=== PATIENT | male | born 1990 | race Hispanic/Latino ===

== ENCOUNTER 2019-04-09 05:36 | Emergency (ER) | payer OTHER ==
[~2019-04-09] VITALS: Ht 175.3 cm; Wt 106.6 kg
--- NOTE | 2019-04-09 06:18 | Diagnostic Imaging Report ---
EXAMINATION: CHEST 2 VIEWS INDICATION: Shortness of breath. COMPARISON: None FINDINGS: TUBES and LINES: None. LUNGS: Low lung volumes. Mild patchy bibasilar opacity, likely atelectasis. There is no evidence of pneumonia or pulmonary edema. PLEURA: No pleural effusion or pneumothorax. HEART AND MEDIASTINUM: The cardiomediastinal silhouette is unremarkable. BONES AND SOFT TISSUES: No acute osseous abnormality. UPPER ABDOMEN: No free air under the diaphragm. IMPRESSION: No acute radiographic abnormality. Signed by: Dr. Surjit Reyna MD on 04/09/2019 6:15 AM
[2019-04-09] MEDS ORDERED: PANTOPRAZOLE 40 MG 10ML VIAL IV STA (06:25)
[2019-04-09] MEDS ORDERED: ASPIRIN 81 MG CHEW TAB PO STA (06:25)
[2019-04-09] MEDS ORDERED: SODIUM CHLORIDE 0.9% 1000ML 1,000 ML IV STA (06:25)
[2019-04-09 07:07] LABS: BASOPHILS % 0.8 % (0.0-1.0); EOSINOPHILS # (AUTO) 0.1 (0.0-0.4); EOSINOPHILS % 1.5 % (0.0-6.0); HEMATOCRIT 43.1 % (38.2-49.6); HEMOGLOBIN 15.6 g/dL (14.0-18.0); LYMPHOCYTES # (AUTO) 2.3 (1.0-3.2); LYMPHOCYTES % 43.6 % (18.0-39.1); MEAN CORPUSCULAR HEMOGLOBIN 31.4 pg (28-32); MEAN CORPUSCULAR HGB CONC 36.2 g/dL (31-35); MEAN CORPUSCULAR VOLUME 86.7 fL (81-99); MONOCYTES # (AUTO) 0.4 (0.2-0.8); NEUTROPHILS # (AUTO) 2.5 (2.1-6.9); NEUTROPHILS % 46.9 % (38.7-80.0); PLATELET COUNT 222 x10e3/uL (140-360); RED BLOOD COUNT 4.97 x10e6/uL (4.3-5.7); RED CELL DISTRIBUTION WIDTH 11.8 % (11.7-14.4)
[2019-04-09 07:11] LABS: BILIRUBIN,URINE NEGATIVE (NEGATIVE); CLARITY,URINE SL CLOUDY (CLEAR); COLOR,URINE YELLOW (YELLOW); KETONES,URINE NEGATIVE (NEGATIVE); LEUKOCYTE ESTERASE ,URINE NEGATIVE (NEGATIVE); NITRITE,URINE NEGATIVE (NEGATIVE); PROTEIN,URINE DIPSTICK NEGATIVE (NEGATIVE); URINE UROBILINOGEN 0.2 mg/dL (0.2 - 1)
[2019-04-09 07:36] LABS: AMORPHOUS SEDIMENT,URINE FEW (FEW); BACTERIA,URINE MODERATE /HPF; EPITHELIAL CELLS,URINE MODERATE /LPF; RBC,URINE 0-5 /HPF (0-5)
[2019-04-09 07:44] LABS: ALANINE AMINOTRANSFERASE 24 IU/L (0-55); ALBUMIN 4.2 g/dL (3.5-5.0); ALBUMIN/GLOBULIN RATIO 1.7 (0.8-2.0); ALKALINE PHOSPHATASE 55 IU/L (40-150); ANION GAP 12.8 mmol/L (8-16); BLOOD UREA NITROGEN 16 mg/dL (7-26); BUN/CREATININE RATIO 19 (6-25); CALCIUM 9.3 mg/dL (8.4-10.2); CARBON DIOXIDE 26 mmol/L (22-29); CHLORIDE 103 mmol/L (98-107); CREATINE KINASE 136 IU/L (30-200); CREATININE, SERUM 0.83 mg/dL (0.72-1.25); EST GLOMERULAR FILTRATION RATE > 60 ML/MIN (60-); GLUCOSE 101 mg/dL (74-118); LIPASE 22 U/L (8-78); MAGNESIUM 2.1 MG/DL (1.3-2.1); POTASSIUM 3.8 mmol/L (3.5-5.1); SODIUM 138 mmol/L (136-145)
[2019-04-09 07:49] LABS: AMPHETAMINES SCREEN,URINE NEGATIVE (NEGATIVE); BENZODIAZEPINES SCREEN,URINE NEGATIVE (NEGATIVE); PHENCYCLIDINE SCREEN,URINE NEGATIVE (NEGATIVE)
[2019-04-09 08:17] VITALS: BP 130/87
== END 2019-04-09 08:25 | disposition home or self-care (01) ==
LOC: ER 05:36
DX: R07.89 Other chest pain (principal)
CPT/HCPCS: 36415; 71046; 80053; 80307; 81001; 82550; 82553; 83690; 83735; 83880; 84484; 85025; 93005; 99284; C9113; J7030

== ENCOUNTER 2019-09-22 12:26 | Emergency (ER) | payer OTHER ==
[~2019-09-22] VITALS: Ht 172.7 cm; Wt 117.1 kg
--- OUTSIDE RECORDS SUMMARY | 2019-09-22 12:29 | XMS REPORT ---
Author Author [facility] Address Unknown Phone Unavailable Care Team Providers Care Carver Hand Name Role Phone NONSTAFF PP Unavailable Elli TRIVEDI Unavailable Unavailable Problems This patient has no known problems. Allergies, Adverse Reactions, Alerts This patient has no known allergies or adverse reactions. Medications This patient has no known medications. Procedures and Interventions Procedure Date / Time Performed Performing Clinician X-ray of chest, two views 2019-04-09 00:00:00 RIDGE TRIVEDI Encounters Start Date/Time End Date/Time Encounter Type Admission Type Attending Clinicians Care Facility Care Department Encounter ID 2019-04-09 05:36:00 2019-04-09 08:25:00 Departed Emergency Room [address] [facility] [id number] Results Test Description Test Time Test Comments Text Results Atomic Results Result Comments Creatine Kinase MB 2019-04-09 07:53:00 Creatine Kinase MB (test mawx=26375-8) 1.00 0-5.0 Troponin Z1789-83-12 07:53:00* Test Item Value Reference Range Comments Troponin I (test ngzx=VSY0216) < 0.001 0-0.300 Urine Opiates Bkrmmx3458-36-10 07:49:00* Test Item Value Reference Range Comments Urine Opiates Screen (test amph=20851-1) NEGATIVE NEGATIVE ALL TESTS PERFORMED MANUALLY ON [employer] TOX/SEE TEST --- 04/09/19 0749 ---OPIATE S previously reported as: ALL TESTS PERFORMED MANUALLY ON [employer] TOX/SEE TEST Urine Barbiturates Tiwyvv6370-47-90 07:49:00* Test Item Value Reference Range Comments Urine Barbiturates Screen (test nnjb=261828419) NEGATIVE NEGATIVE Urine Phencyclidine Wxaydw8913-61-05 07:49:00* Test Item Value Reference Range Comments Urine Phencyclidine Screen (test egmg=96747-7) NEGATIVE NEGATIVE Urine Amphetamines Gwyfcd4724-53-24 07:49:00* Test Item Value Reference Range Comments Urine Amphetamines Screen (test hbgt=50379-0) NEGATIVE NEGATIVE Urine Methamphetamines Nimeuj5451-09-30 07:49:00* Test Item Value Reference Range Comments Urine Methamphetamines Screen (test code=Urine Methamphetamines Screen) NEGATIVE NEGATIVE Urine Benzodiazepines Qnzhnh0400-13-27 07:49:00* Test Item Value Reference Range Comments Urine Benzodiazepines Screen (test exnz=61561-1) NEGATIVE NEGATIVE Urine Cocaine Gjqilf9596-40-43 07:49:00* Test Item Value Reference Range Comments Urine Cocaine Screen (test mqaq=0705-5) NEGATIVE NEGATIVE Urine Cannabinoids Krwngm0158-36-79 07:49:00* Test Item Value Reference Range Comments Urine Cannabinoids Screen (test ufdi=75887-8) NEGATIVE NEGATIVE THESE RESULTS ARE FOR MEDICAL TREATMENT ONLYTHIS REPORT CONTAINS UNCONFIR MED SCREENING RESULTS*POSITIVE RESULTS WILL BE CONFIRMED BY REFERENCE LAB UPON R EQUEST CUT-OFFDRUG CLASS CONCENTRATION ng/mLAmphetamines 1000Methamphetamines 1000Cocaine 300Opiate 300Phencyc lidine 25Cannabinoid 50Barbiturates 300Benzodiazepine 300Methadone 300 --- 0749 ---THC previously reported as: THESE RESULTS ARE FOR MEDICAL TREATM ENT ONLYTHIS REPORT CONTAINS UNCONFIRMED SCREENING RESULTS*POSITIVE RESULTS WILL BE CONFIRMED BY REFERENCE LAB UPON REQUEST CUT-OF FDRUG CLASS CONCENTRATION ng/mLAmphetamin es 1000Methamphetamines 1000Cocaine 300Opiate 300Phencyclidine 25Cannabinoid 50Barbiturates 300Benzodiazepine 300Me thadone 300Urine Methadone Uzucsc6138-44-73 07:49:00* Test Item Value Reference Range Comments Urine Methadone Screen (test ghgq=74041-2) NEGATIVE NEGATIVE THESE RESULTS ARE FOR MEDICAL TREATMENT ONLYTHIS REPORT CONTAINS UNCONFIR MED SCREENING RESULTS*POSITIVE RESULTS WILL BE CONFIRMED BY REFERENCE LAB UPON R EQUEST CUT-OFFDRUG CLASS CONCENTRATION ng/mLAmphetamines 1000Methamphetamines 1000Cocaine Metabolite 300Opiate 300Phencyc lidine 25Cannabinoid 50Barbiturates 300Benzodiazepine 300Methadone 300Sodium Level 2019-04-09 07:45:00* Test Item Value Reference Range Comments Sodium Level (test rwrg=6620-2) 138 136-145 Potassium Supga8323-19-91 07:45:00* Test Item Value Reference Range Comments Potassium Level (test lfxy=3232-6) 3.8 3.5-5.1 Chloride Oeksl3486-41-87 07:45:00* Test Item Value Reference Range Comments Chloride Level (test ydvg=6743-2) 103 98-107 Carbon Dioxide Glxuh8627-99-00 07:45:00* Test Item Value Reference Range Comments Carbon Dioxide Level (test hrxu=5016-2) 26 22-29 Anion Bdj0712-74-41 07:45:00* Test Item Value Reference Range Comments Anion Gap (test jmok=46431-1) 12.8 8-16 Blood Urea Yekmubuf1760-72-33 07:45:00* Test Item Value Reference Range Comments Blood Urea Nitrogen (test exmf=7264-8) 16 7-26 Tpvaoeqfwe4087-65-44 07:45:00* Test Item Value Reference Range Comments Creatinine (test hpzx=5433-9) 0.83 0.72-1.25 BUN/Creatinine Kaaow4866-94-31 07:45:00* Test Item Value Reference Range Comments BUN/Creatinine Ratio (test ojts=8734-3) 19 6-25 Estimat Glomerular Filtration Bbsh1019-38-63 07:45:00* Test Item Value Reference Range Comments Estimat Glomerular Filtration Rate (test iqdd=747324836) > 60 >60 Ranges were taken from the National Kidney Disease Education Program and the [facility] literature.Reference ranges:60 or greater: Ptuqzi20-01 ( for 3 consecutive months): Chronic kidney disease 15 or less: Kidney failure Glucose Blhso6764-38-37 07:45:00* Test Item Value Reference Range Comments Glucose Level (test ageu=YCC3399) 101 74-118 Calcium Guitm9282-30-28 07:45:00* Test Item Value Reference Range Comments Calcium Level (test igfm=86572-9) 9.3 8.4-10.2 Magnesium Kvnms7699-63-19 07:45:00* Test Item Value Reference Range Comments Magnesium Level (test ntoa=05164-1) 2.1 1.3-2.1 Total Lsvskcbfi6232-43-11 07:45:00* Test Item Value Reference Range Comments Total Bilirubin (test fuaa=4452-7) 0.5 0.2-1.2 Aspartate Amino Transf (AST/SGOT)2019-04-09 07:45:00* Test Item Value Reference Range Comments Aspartate Amino Transf (AST/SGOT) (test code=Aspartate Amino Transf (AST/SGOT)) 22 5-34 Alanine Aminotransferase (ALT/SGPT)2019-04-09 07:45:00* Test Item Value Reference Range Comments Alanine Aminotransferase (ALT/SGPT) (test dfbo=2743-0) 24 0-55 Total Lgkptld6273-29-11 07:45:00* Test Item Value Reference Range Comments Total Protein (test tjpu=6825-9) 6.7 6.5-8.1 Uwurlsx2496-66-35 07:45:00* Test Item Value Reference Range Comments Albumin (test ciht=4474-7) 4.2 3.5-5.0 Idszyahg8944-16-54 07:45:00* Test Item Value Reference Range Comments Globulin (test symn=83934-4) 2.5 2.3-3.5 Albumin/Globulin Rgwcr4529-16-18 07:45:00* Test Item Value Reference Range Comments Albumin/Globulin Ratio (test uqxf=3621-9) 1.7 0.8-2.0 Alkaline Oascmswbgeo6343-25-61 07:45:00* Test Item Value Reference Range Comments Alkaline Phosphatase (test utzc=3453-6) 55 40-150 Creatine Sgftiw3974-49-77 07:45:00* Test Item Value Reference Range Comments Creatine Kinase (test jdsy=2556-1) 136 30-200 Wkrmbp0590-15-85 07:45:00* Test Item Value Reference Range Comments Lipase (test fmit=1698-1) 22 8-78 Urine NSF4676-98-21 07:36:00* Test Item Value Reference Range Comments Urine WBC (test qdsa=2426-5) 6-10 0-5 Urine PMV6421-55-08 07:36:00* Test Item Value Reference Range Comments Urine RBC (test milj=04842-0) 0-5 0-5 Urine Mbvcprty2143-99-70 07:36:00* Test Item Value Reference Range Comments Urine Bacteria (test dmus=08124-3) MODERATE NONE Urine Epithelial Hwgle1704-20-04 07:36:00* Test Item Value Reference Range Comments Urine Epithelial Cells (test xavh=43497-1) MODERATE NONE Urine Amorphous Edtdqpra0443-29-10 07:36:00* Test Item Value Reference Range Comments Urine Amorphous Sediment (test misz=2929-4) FEW FEW B-Type Natriuretic Mlzaspm1625-68-57 07:33:00* Test Item Value Reference Range Comments B-Type Natriuretic Peptide (test ulfc=69136-1) 19.4 0-100 Urine Dyikm6445-49-70 07:24:00* Test Item Value Reference Range Comments Urine Color (test jnof=5519-7) YELLOW YELLOW Urine Latyctn0006-45-51 07:24:00* Test Item Value Reference Range Comments Urine Clarity (test etod=66095-3) SL CLOUDY CLEAR Urine Specific Qndjtpk5316-16-56 07:24:00* Test Item Value Reference Range Comments Urine Specific [place] (test yxsu=6455-6) 1.020 1.010-1.025 Urine pT8548-94-66 07:24:00* Test Item Value Reference Range Comments Urine pH (test owsf=49439-5) 7.5 5-7 Urine Leukocyte Znpnnsln4100-43-90 07:24:00* Test Item Value Reference Range Comments Urine Leukocyte Esterase (test kbfv=44546-8) NEGATIVE NEGATIVE Urine Gnxudah9394-23-86 07:24:00* Test Item Value Reference Range Comments Urine Nitrite (test kmwm=35986-4) NEGATIVE NEGATIVE Urine Mipgyli2954-45-23 07:24:00* Test Item Value Reference Range Comments Urine Protein (test frbx=67047-7) NEGATIVE NEGATIVE Urine Glucose (UA)2019-04-09 07:24:00* Test Item Value Reference Range Comments Urine Glucose (UA) (test mrtd=97484-8) NEGATIVE NEGATIVE Urine Mhknwpf6401-43-98 07:24:00* Test Item Value Reference Range Comments Urine Ketones (test tofl=76269-1) NEGATIVE NEGATIVE Urine Zklzdpftesxn9669-11-98 07:24:00* Test Item Value Reference Range Comments Urine Urobilinogen (test ohru=33098-9) 0.2 0.2-1 Urine Zfxjrkqqf5197-35-01 07:24:00* Test Item Value Reference Range Comments Urine Bilirubin (test fcyp=8628-5) NEGATIVE NEGATIVE Urine Svcxe8364-66-13 07:24:00* Test Item Value Reference Range Comments Urine Blood (test enlk=43731-8) NEGATIVE NEGATIVE White Blood Fveyp4298-09-52 07:23:00* Test Item Value Reference Range Comments White Blood Count (test idfs=3455-6) 5.30 4.8-10.8 Red Blood Hvgxi1643-84-67 07:23:00* Test Item Value Reference Range Comments Red Blood Count (test qqhm=090-5) 4.97 4.3-5.7 Omllqlknbk6731-94-33 07:23:00* Test Item Value Reference Range Comments Hemoglobin (test fjfb=54851-0) 15.6 14.0-18.0 Euhcsmkhde2628-24-32 07:23:00* Test Item Value Reference Range Comments Hematocrit (test fclg=9610-9) 43.1 38.2-49.6 Mean Corpuscular Upzeoc1103-93-65 07:23:00* Test Item Value Reference Range Comments Mean Corpuscular Volume (test ymkv=166-0) 86.7 81-99 Mean Corpuscular Daibbmakvh1595-15-53 07:23:00* Test Item Value Reference Range Comments Mean Corpuscular Hemoglobin (test mpmo=822-6) 31.4 28-32 Mean Corpuscular Hemoglobin Ynfjsut8158-98-90 07:23:00* Test Item Value Reference Range Comments Mean Corpuscular Hemoglobin Concent (test lgha=551-5) 36.2 31-35 Red Cell Distribution Kdhsa6626-59-78 07:23:00* Test Item Value Reference Range Comments Red Cell Distribution Width (test cpmd=00664-6) 11.8 11.7-14.4 Platelet Amtbu4445-67-04 07:23:00* Test Item Value Reference Range Comments Platelet Count (test zgjv=806-7) 222 140-360 Neutrophils (%) (Auto)2019-04-09 07:23:00* Test Item Value Reference Range Comments Neutrophils (%) (Auto) (test dogu=44083-7) 46.9 38.7-80.0 Lymphocytes (%) (Auto)2019-04-09 07:23:00* Test Item Value Reference Range Comments Lymphocytes (%) (Auto) (test vaax=746-7) 43.6 18.0-39.1 Monocytes (%) (Auto)2019-04-09 07:23:00* Test Item Value Reference Range Comments Monocytes (%) (Auto) (test zydz=4552-3) 7.0 4.4-11.3 Eosinophils (%) (Auto)2019-04-09 07:23:00* Test Item Value Reference Range Comments Eosinophils (%) (Auto) (test oztf=671-0) 1.5 0.0-6.0 Basophils (%) (Auto)2019-04-09 07:23:00* Test Item Value Reference Range Comments Basophils (%) (Auto) (test kclr=405-9) 0.8 0.0-1.0 IM GRANULOCYTES %2019-04-09 07:23:00* Test Item Value Reference Range Comments IM GRANULOCYTES % (test code=IM GRANULOCYTES %) 0.2 0.0-1.0 Neutrophils # (Auto)2019-04-09 07:23:00* Test Item Value Reference Range Comments Neutrophils # (Auto) (test fiml=235-5) 2.5 2.1-6.9 Lymphocytes # (Auto)2019-04-09 07:23:00* Test Item Value Reference Range Comments Lymphocytes # (Auto) (test cqhz=94988-9) 2.3 1.0-3.2 Monocytes # (Auto)2019-04-09 07:23:00* Test Item Value Reference Range Comments Monocytes # (Auto) (test wtfy=358-7) 0.4 0.2-0.8 Eosinophils # (Auto)2019-04-09 07:23:00* Test Item Value Reference Range Comments Eosinophils # (Auto) (test oemx=149-5) 0.1 0.0-0.4 Basophils # (Auto)2019-04-09 07:23:00* Test Item Value Reference Range Comments Basophils # (Auto) (test jfgo=912-7) 0.0 0.0-0.1 Absolute Immature Granulocyte (eaii6881-25-55 07:23:00* Test Item Value Reference Range Comments Absolute Immature Granulocyte (auto (test code=Absolute Immature Granulocyte (auto) 0.01 0-0.1 CHEST 2 WWGLS4876-94-16 06:10:00 [place] [address] Patient Name: RAMON WEINBERG MR #: [id number] : 1990 Age/Sex: 29/M Req #: [id number] Adm Physician: Ordered by: RIDGE TRIVEDI MD Report #: [id number] Location: ER Room/Bed: Procedure: 1105-001 5 DX/CHEST 2 VIEWS Exam Date: 04/09/19 Exam Time: 06 00 REPORT STATUS: Signed EXAMINA TION: CHEST 2 VIEWS INDICATION: Shortness of breath. COMPARISON: None FINDINGS: TUBES and LINES: None. LUNGS: Low lung volum es. Mild patchy bibasilar opacity, likely atelectasis. There is no evidence o f pneumonia or pulmonary edema. PLEURA: No pleural effusion or pneumothora x. HEART AND MEDIASTINUM: The cardiomediastinal silhouette is unremarkabl e. BONES AND SOFT TISSUES: No acute osseous abnormality. UPPER AB DOMEN: No free air under the diaphragm. IMPRESSION: No acute radiogr aphic abnormality. Signed by: Dr. Marco A Silver MD on 04/09/2019 6:15 AM Dictated By: MARCO A SILVER MD 4 COPY TO: KENYATTA TRIVEDI MD
[2019-09-22] MEDS ORDERED: LEXAPRO10 MG PO (13:02)
[2019-09-22] MEDS ORDERED: AZITHROMYCIN500 MG PO (13:12)
[2019-09-22 13:16] VITALS: BP 139/77
== END 2019-09-22 13:25 | disposition home or self-care (01) ==
LOC: FSED 12:26
DX: R05 Cough (principal); J20.9 Acute bronchitis, unspecified; J02.9 Acute pharyngitis, unspecified
CPT/HCPCS: 83518; 87400; 99283

== ENCOUNTER 2021-02-10 10:00 | Emergency (ER) | payer BC, OTHER ==
[~2021-02-10] VITALS: Ht 172.7 cm; Wt 126.1 kg
[~2021-02-10 10:00] MED LIST: AZITHROMYCIN500 MG PO; LEXAPRO10 MG PO
[2021-02-10] MEDS ORDERED: PEPCID20 MG PO (10:47)
[2021-02-10] MEDS ORDERED: TYLENOL325 MG PO (10:47)
== END 2021-02-10 11:00 | disposition home or self-care (01) ==
LOC: FSED 10:57
DX: K52.9 Noninfective gastroenteritis and colitis, unspecified (principal); I10 Essential (primary) hypertension; F32.9 Major depressive disorder, single episode, unspecified
CPT/HCPCS: 99282